=== PATIENT | female | born 1950 | race American Indian/Alaskan Native ===

== ENCOUNTER 2018-07-19 16:48 | Emergency (ER) | payer MEDICARE ==
[2018-07-19] MEDS ORDERED: D50W (25GM) Syringe IV ONE ×2 (17:10→17:51)
--- NOTE | 2018-07-19 17:52 | Emergency Department Report ---
ED General Adult HPI - General Chief complaint: Hypoglycemia Stated complaint: LOW BLOOD SUGAR Time Seen by Provider: 07/19/18 16:48 Source: patient, EMS Mode of arrival: Ambulatory Limitations: No Limitations - History of Present Illness Initial comments: Patient is a 68-year-old female that presents emergency room with complaints of the presents emergency room for altered mental status secondary to hypoglycemia. Report received from EMS. EMS states that the patient had a 16 for blood sugar. Patient was given oral glucose. Patient became lethargic after the oral glucose. Upon arrival the patient's blood sugar is now less than 20 and will be given D50. Patient is answering questions appropriately. Patient is lethargic but easily arousable. Patient states that she took her insulin today but did not eat as well. Patient states she was in a computer class at the local [employer] and didn't have a chance to eat her normal amount of food. Patient denies chest pain or shortness of breath. Patient denies diaphoresis. Patient denies trauma. Patient denies headache. Patient denies head pain. Patient denies abdominal pain. Patient denies fever or chills. Severity scale (0 -10): 0 Consistency: constant Improves with: medication, rest Worsens with: other Associated Symptoms: confusion, weakness. denies: chest pain, cough, diaphoresis, fever/chills, headaches, loss of appetite, malaise, nausea/vomiting, rash, seizure, shortness of breath, syncope - Related Data Allergies Allergy/AdvReac Type Severity Reaction Status Date / Time No Known Allergies Allergy Verified 07/19/18 17:51 ED Review of Systems ROS: Stated complaint: LOW BLOOD SUGAR Other details as noted in HPI Constitutional: denies: chills, fever Eyes: denies: eye pain, eye discharge, vision change ENT: denies: ear pain, throat pain Respiratory: denies: cough, shortness of breath, wheezing Cardiovascular: denies: chest pain, palpitations Endocrine: no symptoms reported Gastrointestinal: denies: abdominal pain, nausea, diarrhea Genitourinary: denies: urgency, dysuria, discharge Musculoskeletal: denies: back pain, joint swelling, arthralgia Skin: denies: rash, lesions Neurological: weakness. denies: headache, paresthesias Psychiatric: denies: anxiety, depression Hematological/Lymphatic: denies: easy bleeding, easy bruising ED Past Medical Hx - Past Medical History Previous Medical History?: Yes Hx Diabetes: Yes Hx Renal Disease: Yes (baseline cr 1.2) - Surgical History Past Surgical History?: No - Family History Family history: hypertension - Social History Smoking Status: Never Smoker Substance Use Type: None ED Physical Exam - General Limitations: No Limitations General appearance: alert, in no apparent distress, lethargic - Head Head exam: Present: atraumatic, normocephalic - Eye Eye exam: Present: normal appearance - ENT ENT exam: Present: mucous membranes moist - Neck Neck exam: Present: normal inspection - Respiratory Respiratory exam: Present: normal lung sounds bilaterally. Absent: respiratory distress - Cardiovascular Cardiovascular Exam: Present: regular rate, normal rhythm. Absent: systolic murmur, diastolic murmur, rubs, gallop - GI/Abdominal GI/Abdominal exam: Present: soft, normal bowel sounds - Extremities Exam Extremities exam: Present: normal inspection - Back Exam Back exam: Present: normal inspection - Neurological Exam Neurological exam: Present: alert, oriented X3 - Psychiatric Psychiatric exam: Present: normal affect, normal mood - Skin Skin exam: Present: warm, dry, intact, normal color. Absent: rash ED Course Vital Signs 07/19/18 07/19/18 07/19/18 16:59 18:24 21:58 Temperature 97.8 F Pulse Rate 5 L 74 Respiratory 16 16 18 Rate Blood Pressure 112/48 Blood Pressure 169/74 [Right] O2 Sat by Pulse 99 100 Oximetry - Reevaluation(s) Reevaluation #1: Initial evaluation done. Nurse states that the blood sugars less than 20 and the patient will be given D50. We will continue to monitor her blood sugar. 07/19/18 16:48 pt found to have hypoglycemia again and patient will be given oral food and D50. 07/19/18 17:45 Patient's repeat blood sugar 112 patient is awake alert and oriented. 07/19/18 19:35 She is awake alert and oriented. Patient's blood sugars improving. blood pressure is extremely high. patient will be given her nighttime dose of lisinopril 40 mg 07/19/18 20:45 Patient is alert and oriented. Patient's blood pressure has improved. Patient blood sugar will be rechecked 07/19/18 21:16 BP is 152/70. Blood sugar 184. Patient is stable for discharge. Patient given discharge instructions. Discussed all results with patient and family. Patient is back to baseline per family and patient. Patient voiced understanding of discharge instructions. 07/19/18 21:23 ED Medical Decision Making - Lab Data Result diagrams: 07/19/18 17:48 07/19/18 17:48 - EKG Data -: EKG Interpreted by Me EKG shows normal: sinus rhythm, axis, intervals, QRS complexes, ST-T waves Rate: normal - Medical Decision Making Patient is a 68-year-old female that presents to emergency room with severe hypoglycemia. Patient missed meals and took her insulin today. Patient is on long-acting and short-acting insulin. Patient's initial blood sugar was less than 20. Patient given 2 Amps of D50 during her stay in the ER and given food. Patient's blood sugar after food and that 2 amps OF D50 has stabilized. Patient's labs unremarkable except for elevated creatinine however is at patient's baseline. Patient given discharge instructions. Patient given medication instructions. - Differential Diagnosis hypoglycemia. Missed meal. Overdose of insulin. Renal insufficiency Critical Care Time: Yes Critical care attestation.: If time is entered above; I have spent that time in minutes in the direct care of this critically ill patient, excluding procedure time. Critical Care Time: 65 minutes ED Disposition Clinical Impression: Hypoglycemia Diabetes Qualifiers: Diabetes mellitus type: type 2 Diabetes mellitus manager long term care insulin use: with mcfp use Diabetes mellitus complication status: with hypoglycemia Diabetes mellitus complication detail: without coma Qualified Code(s): E11.649 - Type 2 diabetes mellitus with hypoglycemia without coma Hypertension Qualifiers: Hypertension type: essential hypertension Qualified Code(s): I10 - Essential (p rimary) hypertension Altered mental state Qualifiers: Altered mental status type: unspecified Qualified Code(s): R41.82 - Altered mental status, unspecified Disposition: DC-01 TO HOME OR SELFCARE Is pt being admited?: No Does the pt Need Aspirin: No Condition: Stable Instructions: Diabetic Hypoglycemia (ED), Diabetes Mellitus Type 2 in Adults (ED), Hypertension (ED) Additional Instructions: Patient to follow-up with primary care in 2-3 days. Patient to return to ER if condition worsens. Patient to take medications as directed. Increase water. Patient to rest. Patient to eat regularly. Patient to eat a diabetic diet. Patient To monitor blood pressure at home. Referrals: [facility], MD [Primary Care Provider] - 2-3 Days Time of Disposition: 21:34
[2018-07-19 18:20] LABS: Hematocrit 34.4 % (30.3-42.9); Hemoglobin 11.3 gm/dl (10.1-14.3); Mean Corpuscular HGB Conc 33 % (30-34); Mean Corpuscular Volume 97 fl (79-97); Red Blood Count 3.54 M/mm3 (3.65-5.03); Red Cell Distribution Width 13.5 % (13.2-15.2)
[2018-07-19 18:43] LABS: Alanine Aminotransferase 21 units/L (7-56); Albumin 4.1 g/dL (3.9-5); BUN/Creatinine Ratio 24; Blood Urea Nitrogen 31 mg/dL (7-17); Calcium 9.2 mg/dL (8.4-10.2); Hemolysis Index 13
[2018-07-19 18:53] LABS: RBC Morphology Normal; Total Cells Counted 100
[2018-07-19 19:05] LABS: Platelet Count 173 K/mm3 (140-440)
[2018-07-19] MEDS ORDERED: ZESTRIL ONE (20:37)
[2018-07-19] MEDS ORDERED: ZESTRIL PO ONE (20:37)
[2018-07-19] MEDS ORDERED: TYLENOL PO ONE (21:49)
[2018-07-19 21:59] VITALS: BP 169/74
== END 2018-07-19 22:34 | disposition home or self-care (01) ==
LOC: ED 16:48
DX: E11.649 Type 2 diabetes mellitus with hypoglycemia without coma (principal); I10 Essential (primary) hypertension
CPT/HCPCS: 36415; 80053; 82140; 82550; 82962; 84484; 85007; 85025; 93005; 93010; 96374; 96376

== ENCOUNTER 2018-09-28 09:24 | Outpatient (CLI) | payer OTHER ==
--- NOTE | 2018-09-28 14:16 | Mammography Report ---
BILATERAL DIGITAL SCREENING MAMMOGRAM with CAD : 09/28/18 09:24:00 CLINICAL: Routine screening. COMPARISON:None available. FINDINGS: The breasts are heterogeneously dense, which may obscure small masses.Bilateral benign calcifications. A benign scar in the right upper breast on the MLO view. No mass, architectural distortion or suspicious calcifications. IMPRESSION: No mammographic evidence of malignancy. BI-RADS CATEGORY: 2 -- Benign RECOMMENDATION: Routine mammographic screening in one year. COMMENT: Patient follow-up letters are generated by our [employer] application.
== END 2018-09-28 09:25 | disposition home or self-care (01) ==
LOC: SPVWC 09:24
PROVIDERS: ATTEND Internal Medicine
DX: Z12.31 Encounter for screening mammogram for malignant neoplasm of breast (principal)
CPT/HCPCS: 77067

== ENCOUNTER 2019-01-19 14:55 | Emergency (ER) | payer MEDICARE, OTHER ==
[2019-01-19 15:07] VITALS: BP 117/66
--- NOTE | 2019-01-19 16:08 | Event Note ---
ED Screening Note Date of service: 01/19/19 Time: 15:54 ED Screening Note: Reports h/o chf, CKD,DM. swelling to leg with See Dr. Grewal PCP, Dr. cortes is [facility] doctor Taking water pills and on on insulin. Takes lisinopril, Doppler u/s of legs done at [facility] last month fro similar. This initial assessment/diagnostic orders/clinical plan/treatment(s) is/are subject to change based on patients health status, clinical progression and re- assessment by fellow clinical providers in the ED. Further treatment and workup at subsequent clinical providers discretion. Patient/guardian urged not to elope from the ED as their condition may be serious if not clinically assessed and managed. Initial orders include: cbc
[2019-01-19 16:45] LABS: Basophils % (Auto) 0.3 % (0.0-1.8); Eosinophils # (Auto) 0.1 K/mm3 (0.0-0.4); Hematocrit 34.6 % (30.3-42.9); Hemoglobin 11.5 gm/dl (10.1-14.3); Lymphocytes # (Auto) 1.8 K/mm3 (1.2-5.4); Mean Corpuscular HGB Conc 33 % (30-34); Mean Corpuscular Volume 98 fl (79-97); Monocytes # (Auto) 0.9 K/mm3 (0.0-0.8); Monocytes % (Auto) 14.5 % (0.0-7.3); Platelet Count 207 K/mm3 (140-440); Red Blood Count 3.51 M/mm3 (3.65-5.03); Red Cell Distribution Width 13.6 % (13.2-15.2)
[2019-01-19 16:56] LABS: Albumin 3.9 g/dL (3.9-5); Calcium 9.1 mg/dL (8.4-10.2)
--- NOTE | 2019-01-19 17:08 | XRay Report ---
CHEST 2 VIEWS INDICATION / CLINICAL INFORMATION: SOB, SWELLING LEGS. COMPARISON: None available. FINDINGS: SUPPORT DEVICES: None. HEART / MEDIASTINUM: Cardiac size is mildly enlarged. LUNGS / PLEURA: There is pulmonary vascular congestion without sussy interstitial pulmonary edema. No pleural effusions. The lungs are grossly clear otherwise. No pneumothorax. ADDITIONAL FINDINGS: No significant additional findings. IMPRESSION: 1. Mild cardiomegaly with pulmonary vascular congestion. Signer Name: Ashley Hernandez MD Signed: 01/19/2019 5:04 PM Workstation Name: [id number]
--- NOTE | 2019-01-19 19:25 | Emergency Department Report ---
ED Extremity Problem HPI - General Chief complaint: Extremity Injury, Lower Stated complaint: SEVERE RT HIP PAIN/LEG PAIN Time Seen by Provider: 01/19/19 15:54 Source: patient, family Mode of arrival: Wheelchair Limitations: Physical Limitation - History of Present Illness Initial comments: 68-year-old female presents to ED with right hip pain 3 days. Patient has history of CHF, chronic kidney disease, diabetes, with chronic bilateral lower extremity swelling for which she takes torsemide. Recently had US last month at the [facility] that was negative for DVTs. Patient reports that she has been having pain in the right hip for over a year now, but states it has become worse over the last 3 days. She denies any acute trauma. States pain starts in the right hip joint and radiates down. Patient does report some right lower back pain that also seems to radiate down into her leg. She denies any paresthesias or weakness. MD Complaint: extremity pain -: days(s) (3) Location: right, lower extremity History of Same: Yes -: Yes arthralgia Radiation: distal Quality: sharp Consistency: constant Improves with: immobilization Worsens with: weight bearing, walking Associated Symptoms: denies: chest pain, shortness of breath, fever - Related Data Previous Rx's Medication Instructions Recorded Last Taken Type Naproxen [Naprosyn] 500 mg PO BID #20 tablet 01/19/19 Unknown Rx traMADol [Ultram] 50 mg PO Q6HR PRN #10 tablet 01/19/19 Unknown Rx Allergies Allergy/AdvReac Type Severity Reaction Status Date / Time No Known Allergies Allergy Verified 07/19/18 17:51 ED Review of Systems ROS: Stated complaint: SEVERE RT HIP PAIN/LEG PAIN Other details as noted in HPI Comment: All other systems reviewed and negative Constitutional: denies: chills, fever Respiratory: denies: shortness of breath Musculoskeletal: as per HPI, arthralgia Neurological: denies: numbness, paresthesias ED Past Medical Hx - Past Medical History Previous Medical History?: Yes Hx Diabetes: Yes Hx Renal Disease: Yes (baseline cr 1.2) - Surgical History Past Surgical History?: Yes Additional Surgical History: Right arm lumps removed - Social History Smoking Status: Never Smoker Substance Use Type: Prescribed - Medications Home Medications: Home Medications Medication Instructions Recorded Confirmed Last Taken Type Naproxen [Naprosyn] 500 mg PO BID #20 tablet 01/19/19 Unknown Rx traMADol [Ultram] 50 mg PO Q6HR PRN #10 tablet 01/19/19 Unknown Rx ED Physical Exam - General Limitations: Physical Limitation General appearance: alert, in no apparent distress - Head Head exam: Present: atraumatic, normocephalic - Eye Eye exam: Present: normal appearance - ENT ENT exam: Present: mucous membranes moist - Neck Neck exam: Present: normal inspection - Respiratory Respiratory exam: Present: normal lung sounds bilaterally. Absent: respiratory distress - Cardiovascular Cardiovascular Exam: Present: regular rate, normal rhythm - GI/Abdominal GI/Abdominal exam: Absent: distended - Extremities Exam Extremities exam: Present: other (4+ edema BLE) - Back Exam Back exam: Present: paraspinal tenderness (right lower lumbar) - Neurological Exam Neurological exam: Present: alert, oriented X3 - Psychiatric Psychiatric exam: Present: normal affect, normal mood - Skin Skin exam: Present: warm, dry, intact, normal color ED Course Vital Signs 01/19/19 01/19/19 15:00 20:07 Temperature 98.2 F Pulse Rate 70 Respiratory 18 20 Rate Blood Pressure 117/66 O2 Sat by Pulse 99 Oximetry ED Medical Decision Making - Lab Data Result diagrams: 01/19/19 16:15 01/19/19 16:15 - Radiology Data Radiology results: report reviewed, image reviewed - Differential Diagnosis arthritis, lumbar radiculopathy, hip bursitis Critical care attestation.: If time is entered above; I have spent that time in minutes in the direct care of this critically ill patient, excluding procedure time. ED Disposition Clinical Impression: Right hip pain Disposition: DC- TO HOME OR SELFCARE Is pt being admited?: No Condition: Stable Instructions: Lumbar Radiculopathy (ED), Arthralgia (ED) Prescriptions: Naproxen [Naprosyn] 500 mg PO BID #20 tablet traMADol [Ultram] 50 mg PO Q6HR PRN #10 tablet PRN Reason: Pain Referrals: PRIMARY CARE, [Primary Care Provider] - 3-5 Days NEPTALI ACOSTA MD [Staff Physician] - 3-5 Days Time of Disposition: 20:16
--- NOTE | 2019-01-19 19:52 | XRay Report ---
RIGHT HIP, 2 VIEWS INDICATION / CLINICAL INFORMATION: pain. COMPARISON: None available. FINDINGS: Right hip is unremarkable. No fracture or dislocation. Mild degenerative changes present. IMPRESSION: Mild degenerative change. No other significant finding. Signer Name: Ashley Hernandez MD Signed: 01/19/2019 7:48 PM Workstation Name: [id number]
[2019-01-19] MEDS ORDERED: traMADol 50 MG TAB PO ONE (19:54)
== END 2019-01-19 21:15 | disposition home or self-care (01) ==
LOC: ED 14:55
DX: M25.551 Pain in right hip (principal); E11.9 Type 2 diabetes mellitus without complications
CPT/HCPCS: 36415; 71046; 80053; 83880; 85025

== ENCOUNTER 2019-03-18 08:42 | Outpatient (CLI) | payer OTHER ==
[2019-03-18 09:49] LABS: Blood Urea Nitrogen 18 mg/dL (7-17)
--- NOTE | 2019-03-18 11:18 | Cat Scan Report ---
CT ABDOMEN AND PELVIS WITH AND WITHOUT CONTRAST HISTORY: ENCOUNTER FOR OTHER SPECIFIED SPECIAL EXAMINATIONS. Bilateral lower extremity swelling. COMPARISON: No relevant comparison imaging available. TECHNIQUE: Routine abdominal and pelvic CT exam performed following intravenous and oral contrast ad ministration. Noncontrast CT abdomen was also performed. Note: All CT scans at this location are perf ormed using CT dose reduction employed for ALARA by means of automated exposure control. CONTRAST: 100 mL Omnipaque 300. Consent was obtained prior to the administration of contrast. FINDINGS: CT ABDOMEN: Lung Bases: Clear. Liver: Normal. Biliary: Normal gallbladder and bile ducts. Stomach and duodenum: Normal. Spleen: No significant abnormality. Unenlarged. Pancreas: No significant abnormality. Adrenals: A 6 mm benign adenoma of the medial limb of the left adrenal gland. Normal right adrenal gl and. Kidneys: Normal with nondilated renal collecting systems and ureters. No renal mass or calculus. Lymphatics: No lymphadenopathy. Vasculature: No significant abnormality. Bowel/Peritoneum: No significant abnormality. No free air. No ascites. Normal appendix. Additional findings: Mild rectus diastases with supraumbilical midline bulge of colon and small bowel . No fascial defect. CT PELVIC: : Normal urinary bladder. Normal retroflexed uterus and ovaries. No adnexal mass or free fluid. GI: Normal rectum and sigmoid colon. Osseous Structures: No significant abnormality. Additional Findings: No pelvic lymphadenopathy. The vascular structures are normal. No pelvic or abdo gio wall varices. No evidence of acute or chronic venous thrombosis. IMPRESSION: 1. A benign 6 mm left adrenal adenoma. 2. No mass, lymphadenopathy or thrombus to explain lower extremity swelling. Signer Name: Stone Meadows MD Signed: 03/18/2019 11:13 AM Workstation Name: [id number]
== END 2019-03-18 08:43 | disposition home or self-care (01) ==
LOC: CT 08:42
PROVIDERS: ATTEND Internal Medicine
DX: Z01.89 Encounter for other specified special examinations (principal); D35.02 Benign neoplasm of left adrenal gland
CPT/HCPCS: 36415; 74178; 82565; 84520; Q9967